=== PATIENT | female | born 1990 | race Caucasian/White ===

== ENCOUNTER → 2017-05-24 06:30 | Outpatient (CLI) | payer OTHER, SELFPAY ==
--- NOTE | 2017-05-20 06:31 | RAD_ITS ---
STUDY: X-RAY - ABDOMEN/PELVIS REASON FOR EXAM: Female, 26 years old. Constipation and abdominal bloating. Colonic transit examination. TECHNIQUE: Single AP view of the abdomen / pelvis. COMPARISON: None. FINDINGS: There is an abundance of fecal material throughout the colon. Multiple markers are seen scattered throughout the entire colon. The most distal markers are seen in the sigmoid colon. The visualized liver, spleen and kidneys are grossly normal in size and morphology. Normal soft tissue structures. Mild levoconvex scoliosis. RAD/Colonic Trans GI/w Mul Image IMPRESSION: Large amount of fecal material is seen in the colon. Multiple colonic markers are seen throughout the colon. The most distal markers are in the sigmoid colon. Electronically Signed: Daniel Chaves MD at 9:40 EST Tel [phone], Service support ,
--- NOTE | 2017-05-22 06:32 | RAD_ITS ---
STUDY: X-RAY - ABDOMEN/PELVIS REASON FOR EXAM: Female, 26 years old. Constipation, abdominal bloating TECHNIQUE: Single AP view of the abdomen / pelvis. COMPARISON: 05/20/2017 FINDINGS: Normal visualized lung bases. There is a moderate amount of colonic fecal material. There is no demonstrated free abdominal air. Sitzmarks are noted in the rectosigmoid colon. The visualized liver, spleen and kidneys are grossly normal in size and morphology. Normal soft tissue structures. Normal visualized osseous structures. RAD/Colonic Trans GI/w Mul Image IMPRESSION: Moderate fecal retention throughout the colon. Sitzmarks in the rectosigmoid colon Electronically Signed: Dom Eldridge DO at 9:26 EST Tel , Service support ,
--- NOTE | 2017-05-24 06:40 | RAD_ITS ---
STUDY: X-RAY - ABDOMEN/PELVIS REASON FOR EXAM: Female, 26 years old. Colonic transit study day 5. TECHNIQUE: Single AP view of the abdomen / pelvis. COMPARISON: Radiograph of the abdomen dated May 22, 2017. FINDINGS: There is a moderate amount of colonic fecal material. The Sitzmarks visible on the previous study are no longer visible. There is no obvious organomegaly, mass, dilated bowel or pathologic calcifications. Normal soft tissue structures. There is mild curvature of the thoracic and lumbar spine with convexity towards left. RAD/Colonic Trans GI/w Mul Image IMPRESSION: Sitzmarks have all passed since the previous radiograph. Electronically Signed: Katelin Hull MD at 11:00 EST , Service support ,
== END ==
PROVIDERS: Family Provider Family Medicine; PCP Family Medicine; Visit Provider Internal Medicine Gastroenterology
DX: K59.00 Constipation, unspecified (principal)
CPT/HCPCS: 74245

== ENCOUNTER → 2017-09-10 12:08 | Outpatient (CLI) | payer OTHER, SELFPAY ==
[2017-09-10 12:18] LABS: Bacteria 0 SEEN /hpf (None Seen); Mucous, Urine 0 SEEN /hpf (<or=2+); Red Blood Cells-Urine 0 SEEN /hpf (0-5)
[2017-09-10 13:57] LABS: Color, Urine Straw (Yellow); Glucose, Dipstick Normal (Normal); Ketone-Dipstick Negative (Negative); Leukocyte Esterase-Dipstick 25 /ul (Negative); Nitrite-Dipstick Negative (Negative); Occult Blood-Urine Negative /ul (Negative); Protein-Dipstick Negative (Negative); Urine Bilirubin Dipstick Negative (Negative); Urine Clarity Clear (Clear); Urine Urobilinogen Normal (Normal); Urine pH 6.5 (5.0 - 8.0)
[2017-09-10 14:07] LABS: Squamous Epithelial Cells - UA 0-5 SEEN /hpf (5-10); White Blood Cells 0-5 SEEN /hpf (0-5)
== END ==
PROVIDERS: Family Provider Family Medicine; PCP Family Medicine; Visit Provider Family Medicine
DX: R31.9 Hematuria, unspecified (principal)
CPT/HCPCS: 81001

== ENCOUNTER → 2020-03-09 10:01 | Outpatient (CLI) | payer OTHER, SELFPAY | PROVIDERS: PCP Family Medicine; Referring Provider Family Medicine; Visit Provider Family Medicine | DX: Z03.818 Encounter for observation for suspected exposure to other biological agents ruled out (principal) | CPT/HCPCS: 87635; U0003 ==

== ENCOUNTER → 2020-04-26 | Outpatient (CLI) | payer OTHER, SELFPAY | END | disposition home or self-care (01) | PROVIDERS: PCP Family Medicine; Referring Provider Family Medicine; Visit Provider Family Medicine | DX: U07.1 COVID-19 (principal) | CPT/HCPCS: 87635; U0005; U0003 ==

== ENCOUNTER 2021-06-22 17:40 | Outpatient (CLI) | payer OTHER, SELFPAY | END 2021-06-22 23:59 | disposition home or self-care (01) | PROVIDERS: PCP Family Medicine; Visit Provider Family Medicine | DX: Z20.822 Contact with and (suspected) exposure to COVID-19 (principal) | CPT/HCPCS: 87635; U0003; U0005 ==